=== PATIENT | female | born 1990 | race Caucasian/White ===

== ENCOUNTER 2020-09-04 17:21 | Emergency (ER) | payer OTHER, SELFPAY ==
[2020-09-04] VITALS (21 sets, daily range): BP systolic 113–130; BP diastolic 66–80; PULSE 80–100; RESP 16; TEMP 37.2–37.4; O2SAT 97–100
--- NOTE | ~2020-09-04 | CT_ITS ---
EXAMINATION: CT abdomen pelvis wo con EXAM DATE: 09/04/2020 18:49 INDICATION: Right flank and right lower quadrant pain for 4 days. Nausea and vomiting. TECHNIQUE: Spiral CT of the abdomen and pelvis was performed without contrast. Axial, coronal and sag ittal images were reviewed. The dose-length product (DLP) for this examination was 461.91 mGy-cm. T he exposure was tailored according to patient size (auto mA exposure control), and iterative reconstr uction (ASIR) was used as additional dose reduction technique. Comparison is made to prior examinatio n from 2013. FINDINGS: Patient has a right-sided pelvic kidney. There is mild right perinephric fat stranding with out hydronephrosis. There was a similar appearance on 2013 CT scan, when patient also had some hetero geneous enhancement of the kidney consistent with pyelonephritis. Please correlate with urinalysis. P unctate right nephrolithiasis. Uterus and bladder are unremarkable. The liver, spleen, adrenal glands and pancreas are unremarkable. There are cholecystectomy clips. T here is no retroperitoneal or pelvic lymphadenopathy. There are no findings to suggest appendicitis. The stomach and small bowel are unremarkable. There is expected amount of colonic stool. No free intraperitoneal gas. The heart is normal in size. T here are no pericardial or pleural effusions. The lung bases are unremarkable. There are no osteobl astic or osteolytic lesions identified. IMPRESSION: 1. Right pelvic kidney with mild perinephric inflammation, could be acute pyelonephritis. Correlate with urinalysis. 2. Punctate right nephrolithiasis. Reviewed, dictated and finalized at location A. IMPRESSION: 1. Right pelvic kidney with mild perinephric inflammation, could be acute pyel onephritis. Correlate with urinalysis. 2. Punctate right nephrolithiasis.
[2020-09-04 17:53] LABS: Add Urine Microscopic? YES; Appearance Urine Cloudy (Clear); Bacteria Urine 3+ /hpf; Bilirubin Urine Negative (Negative); Blood Urine 1+ (Negative); Color Urine Amber (Yellow); Glucose Urine UA Negative (Negative); Ketones Urine 1+ mg/dL (Negative); Leukocyte Esterase Ur 1+ LEU/UL (Negative); Mucus Urine Few /lpf; Nitrate Urine Negative (Negative); Protein Urine 2+ mg/dL (Negative); Specific Grav Ur 1.023 (1.001-1.035); Squamous Epithelial Cell Urine Many /hpf (Few); Urobilinogen Urine Negative mg/dL (<2.0); WBC Clumps Urine Present /HPF; WBC Urine 51-75 /hpf
--- NOTE | 2020-09-04 18:09 | ED.GENADULT ---
HPI - General Adult General Chief complaint: Fever Stated complaint: N/V/Fever x 4 days Time Seen by Provider: 09/04/20 18:08 Source: patient Mode of arrival: ambulatory Limitations: no limitations History of Present Illness HPI narrative: Patient is here for evaluation of right lower quadrant pain. The pain started approximately 4 days ago, has worsened over time, she has had nausea and vomiting and now anorexia. She denies any dysuria. She did video conference with her physician and was ordered on Zofran for nausea, that did not help. She has been taking Tylenol or ibuprofen at home for fever, stating her last fever was last night before bed and her T-max has been 103. She is afebrile at this time and her last Tylenol was this a.m. Onset (ago): day(s) Radiation: abdomen and flank (right) Severity: severe Quality: sharp Pain Consistency: constant Relieving factors: rest Exacerbating factors: movement Associated symptoms: fever/chills, loss of appetite and nausea/vomiting Treatments prior to arrival: NSAID Related Data Home Medications Medication Instructions Recorded Confirmed fluoxetine [Prozac] 20 mg PO DAILY 02/20/19 venlafaxine [Effexor] 100 mg PO BID 09/04/20 Allergies Allergy/AdvReac Type Severity Reaction Status Date / Time codeine Allergy Unknown Nausea and Verified 02/20/19 14:44 Vomiting gabapentin Allergy Gastrointestinal Verified 09/04/20 18:03 Upset Review of Systems Review of Systems: All systems reviewed & are unremarkable except as noted in HPI and below PMFSH Past Medical History Medical History Anxiety Depression Hx of gallstones Hx of migraines induced hypertension Seizures Surgical History Surgical History History of cholecystectomy History of tonsillectomy Family History Family History Mother Family history of mental disorder Family history of thyroid disease Father Family history of attention deficit hyperactivity disorder (ADHD) Family history of cardiac disorder Other Diabetes mellitus Hypertension Social History Social History Social History: Currently vapes small dose 6 mg/2 weeks Smoking status: Former smoker Tobacco type: cigarettes Alcohol intake: never Exam Const: General: alert and ill appearing HENMT: Head: normal to inspection Mouth: Yes moist mucous membranes Eyes: Conjunctivae: conjunctivae normal Pupils: Equal, round and reactive pupils present EOM: EOMs intact bilaterally Resp: Effort & Inspection: normal respiratory effort Auscultation: clear to auscultation bilaterally Cardio: Rate: regular rate and tachycardic Rhythm: regular rhythm GI: GI Palp: Yes Soft to palpation and Yes Tenderness to palpation present (GI) (RLQ) Auscultation: Hypoactive bowel sounds present : General: Yes CVA tenderness on the right Skin: General skin exam: normal color Rashes: no rashes Neuro: General: moves all extremities Extrem: General: normal to inspection Course Course Emergency Course: Now rating pain 7/10. Pain is better after morphine. Discussed incidental finding of right pelvic kidney. Recommended to discuss with primary care for possible referral to nephrology as she has had 2 episodes of pyelonephritis in 2 yrs. repeat K+ still low, discussed with Dr. Otto, will treat with 5 days of PO potassium. PMD can recheck level. Vital Signs Vital signs: Vital Signs Temperature 37.4 C 09/04/20 17:26 Pulse Rate 100 09/04/20 17:26 Respiratory Rate 16 09/04/20 17:26 Blood Pressure 130/80 09/04/20 17:26 Pulse Oximetry 100 09/04/20 17:26 Temperature 37.2 C 09/04/20 18:55 Pulse Rate 88 09/04/20 22:01 Respiratory Rate 16 09/04/20 17:26 Blood Pressure 125/77 0
[2020-09-04 18:10] LABS: Basophils Absolute Auto 0.1 K/mm3 (0.0-0.1); Basophils Percent Auto 0.7 % (0.2-1.2); Eosinophils Absolute Auto 0.1 K/mm3 (0-0.3); Hematocrit 36.7 % (37.0-47.0); Hemoglobin 12.8 g/dL (12.0-15.0); Immature Granulocyte Absolute 0.13 K/mm3 (0.00-0.031); Immature Granulocyte Percent A 0.9 % (0-0.5); Lymphocytes Absolute Auto 1.93 K/mm3 (0.9-3.2); Lymphocytes Percent Auto 13.8 % (18.3-44.2); Mean Corpuscular HGB Conc 34.9 g/dl (32-36); Mean Corpuscular Volume 85.9 fl (80-100); Mean Platelet Volume 9.7 fl (7.4-10.4); Monocytes Absolute Auto 1.2 K/mm3 (0.1-0.6); Monocytes Percent Auto 8.3 % (2.6-8.5); Neutrophils Absolute Auto 10.5 K/mm3 (1.3-6.7); Neutrophils Percent Auto 75.3 % (45.5-73.1); Platelet Count Result 368 k/mm3 (150-375); Red Blood Count 4.27 M/mm3 (4.2-5.4); Red Cell Distribution Width 13.3 % (11.5-14.5)
[2020-09-04 18:25] LABS: Alanine Aminotransferase 20 U/L (4-35); Albumin Level 4.4 g/dL (3.5-5.1); Alkaline Phosphatase 65 U/L (38-126); Anion Gap 11 mmol/L (8-16); Aspartate Amino Transferase 41 U/L (14-36); Bilirubin,Total 0.7 mg/dL (0.2-1.3); Blood Urea Nitrogen 12 mg/dL (7-17); Calcium 9.8 mg/dL (8.4-10.2); Carbon Dioxide 29 mmol/L (22-30); Chloride 96 mmol/L (98-107); Estimated CRCL calculation 112 ml/min; Estimated Glomerular Filt Rate > 60; Glucose 98 mg/dL (65-105); Lipase 20 U/L (23-300); Potassium 2.8 mmol/L (3.4-5.0); Sodium 136 mmol/L (137-145)
[2020-09-04] MEDS: SODIUM CHLORIDE 0.9% IV 1,000 ML 999 ML IV CONT (18:57)
--- NOTE | 2020-09-04 19:40 | PC.NURSE ---
potassium drip running at this time. will run ciprofloxacin after conclusion of potassium drip.
[2020-09-04] MEDS: MORPHINE SULFATE (*CRX) 2 MG/ML INJ IV PUSH (20:04)
[2020-09-04 20:27] LABS: Lactic Acid Reflex 0.7 mmol/L (0.7-2.1)
[2020-09-04] MEDS: CIPROFLOXACIN 400 MG/D5W 200ML 200 ML 200 MG IVPB (21:54)
[2020-09-04 23:33] LABS: Potassium 2.5 mmol/L (3.4-5.0)
[2020-09-05 00:04] VITALS: BP 124/80; PULSE 95; RESP 16; O2SAT 99
== END 2020-09-04 23:55 | disposition home or self-care (01) ==
PROVIDERS: Emergency Medicine; Physician Assistant; Emergency Provider Emergency Medicine; PCP Family Medicine
DX: N12 Tubulo-interstitial nephritis, not specified as acute or chronic (principal); F41.9 Anxiety disorder, unspecified; F32.9 Major depressive disorder, single episode, unspecified; F17.290 Nicotine dependence, other tobacco product, uncomplicated; E87.6 Hypokalemia
CPT/HCPCS: 36415; 74176; 80053; 81001; 81025; 83605; 83690; 84132; 85025; 87077; 87086; 87088; 87186; 96361; 96365; 96366; 96367; 96375; 99284; J0131; J0744; J2270; J3480; J7030; J7060

== ENCOUNTER 2021-01-09 16:34 | Outpatient (CLI) | payer OTHER, SELFPAY ==
--- NOTE | ~2021-01-09 | US_ITS ---
EXAMINATION: US thyroid DATE: 01/09/2021 17:06 INDICATION: Nontoxic goiter, unspecified. TECHNIQUE: Multiple ultrasound images of the thyroid were obtained. COMPARISON: Ultrasound 10/02/2018, CT cervical spine 10/01/2018 FINDINGS: The right thyroid lobe measures 8.0 x 4.0 x 3.3 cm. The left thyroid lobe measures 5.3 x 1.5 x 2.1 c m. In the right thyroid lobe, there is a 3.9 cm predominantly solid, isoechoic, [id number] nodu le with ill-defined margin without echogenic foci (TR3) with benign biopsy result on 10/17/18. Partial ly visualized is a solid isoechoic nodule in right thyroid lobe that extends into the mediastinum on the prior CT (TR3) with benign biopsy result on 10/17/18. There are subcentimeter nodules in left thyr oid lobe. IMPRESSION: 1. Stable multinodular goiter, likely not clinically significant. Reviewed, dictated and finalized at location A. [employer]
== END 2021-01-09 16:35 | disposition home or self-care (01) ==
LOC: ANHIMG 16:36
PROVIDERS: PCP Family Medicine; Visit Provider Family Medicine
DX: E04.2 Nontoxic multinodular goiter (principal)
CPT/HCPCS: 76536

== ENCOUNTER 2021-02-24 01:23 | Day surgery (SDC) | payer OTHER, SELFPAY ==
--- NOTE | 2021-02-20 14:56 | PC.NURSE ---
Report to the Outpatient Waiting Room, entrance under the green pavilion located off [facility], at time 0730 on date _02/24/21 . OR Time: 929 . - You and your visitor will be asked a series of questions to screen for COVID 19 for your protection. - A mask is required within the hospital. - Only one visitor is allowed at this time. Patient visitors will be guided where to wait when not with patient. Preoperative COVID Testing Requirements: No COVID Test needed if: (proof is required; if not received patient will have Rapid Test prior to entry) - Patient has received COVID Vaccine at least 14 days prior to procedure date or - Patient has positive COVID test result within last 90 days of surgery date. COVID Test needed if above criteria is not met If not COVID vaccinated a COVID test must be conducted within 72 hours of surgery and patient is asked to isolate self from time of testing until procedure. You will go to the [employer] [facility] for your COVID testing. The [employer] [facility] site is located at the corner of [address] from [facility]. You will only be called if COVID results are positive and your surgeon may reschedule your elective surgery date. Patients may have clear liquids (water, carbonated beverages, clear teas, apple juice) until 3 hours prior to surgery with a maximum of 20 ounces. - No food from midnight until time of surgery - Infants may have breast milk until 4 hours before surgery, infant formula 6 hours prior to surgery. - Children will be allowed to drink immediately following surgery. If applicable, please bring a bottle or sippy cup to assist with drinking. Juice, water, soda, and popsicles are readily available. For infants on formula, please bring formula the day of surgery. Pacifiers are allowed. Take the following medications with a SIP of water the morning of surgery: __FLUOXETINE,LEVETIRACETAM,VENLAFAXINE Medications to discontinue per physician NONE Date to take last dose Please no make-up, nail surinamese, hairspray, perfume, deodorant, or body powder the day of surgery. No jewelry (including any body piercings) or valuables the day of surgery, leave them at home. Please take a shower or bath the night before, or the morning of, surgery with an antibacterial soap. Wear comfortable, loose fitting clothing. Children are encouraged to wear pajamas. - Jewelry must be removed prior to entering the operating room. Rings and piercings that are not removed may be cut off. - The hospital will not accept responsibility for valuables. - Please leave all valuables, including medications, at home the day of surgery. If you are going home after surgery, a licensed patient transportation driver must drive you home. - NO public transportation without another adult. - We recommend that an adult stay with you for 24 hours following discharge. - We also recommend that you do not drive, make important decision, drink alcoholic beverages, or take any drugs that were not prescribed by your health care provider for at least 24 hours after your discharge time. For Pediatric surgeries, we recommend two adults accompany the child home (only one inside the building at this time). Follow any additional instructions given to you from your surgeon. Telephone instructions given to __PATIENT and asked if any additional questions and then verbalized understanding. Patient advised to call surgeon office or pre surgery nurse liaison [phone] if any additional questions.
[2021-02-20 14:58] VITALS: BMI 26.5
--- NOTE | 2021-02-23 10:30 | PM.IMHP ---
H&P: HPI History of Present Illness Date/Time: 02/23/21 10:30 Chief Complaint: Choking coughing gagging thyroid goiter thyroid nodules Narrative: patient presents for planned surgical procedure. No change in symptoms no change in history. Review of Systems Constitutional: Constitutional: Denies fatigue, Denies fever(s) and Denies lethargy Eyes: Eyes: Denies blurry vision and Denies change in vision ENT: Reports as per HPI Cardiovascular: Cardiovascular: Denies chest pain Respiratory: Respiratory: Denies cough Endocrine: Endocrine: Denies fatigue Hematologic/Lymphatic: Hematologic/Lymphatic: Denies easy bleeding, Denies easy bruising and Denies lymphadenopathy Allergic/Immunologic: Allergic/Immunologic: Denies seasonal rhinorrhea PMFSH Past Medical History Medical History Anxiety Chronic headaches Depression Hx of gallstones Hx of migraines induced hypertension Seizures Thyroid disorder Surgical History Surgical History History of cholecystectomy History of tonsillectomy Family History Family History Mother Depression Anxiety Thyroid disorder Father Hypertension Sibling Anxiety Depression Grandparent Breast cancer Grandparent Heart disease Other Diabetes mellitus Social History Social History Social History: Currently vapes small dose 6 mg/2 weeks Smoking packs per day: 1 Smoking cigarettes per day: 20.0 Years smoked: 4 Smoking pack-years: 4.00 Smoking status: Former smoker Tobacco type: cigarettes and e-cigarettes/vaping Smoking end date: 03/07/11 Additional smoking assessment comments: STOPPED VAPING AUGUST 2020 Alcohol intake: never Substance use: current Substance use type: marijuana Last use: JUNE 2020 Living arrangements: with family Gender identity (if verbalized by the patient): Female Sexual Orientation (if Verbalized by the Patient): Straight or Heterosexual Spiritual care concerns: No Meds Home Medications and Allergies Home Medications Medication Instructions Recorded Confirmed Type fluoxetine 60 mg tablet 60 mg PO DAILY #30 tablet 12/30/20 02/20/21 Rx venlafaxine 50 mg tablet 50 mg PO DAILY #30 tablet 12/30/20 02/20/21 Rx levetiracetam 1,000 mg tablet 1,000 mg PO Q12H #60 tablet 01/16/21 02/20/21 Rx Allergies Allergy/AdvReac Type Severity Reaction Status Date / Time codeine Allergy Unknown Nausea and Verified 02/20/21 14:42 Vomiting gabapentin Allergy Gastrointestinal Verified 02/20/21 14:42 Upset Exam Const: General: cooperative, healthy appearing, comfortable, well developed and alert HENMT: Head: normal to inspection, normocephalic and atraumatic Ears: hearing grossly normal bilaterally, external ears normal, TM's normal bilaterally and EAC's normal General nose exam: Normal external nose present, Normal nares present, No nasal polyps present, Normal nasal mucous membranes and turbinates present and Normal septum present Face and sinus: normal facial exam Mouth: Yes Normal oral and palatal mucosa present, Yes lip normal, Yes tongue normal, Yes oropharynx normal and Yes moist mucous membranes Teeth and gingiva: dentition normal and gingiva normal Throat: posterior oropharynx normal, tonsils normal and uvula midline Eyes: General: appearance normal, both eyes and all related structures Periorbital: periorbital findings normal Eyelids: eyelids normal Conjunctivae: conjunctivae normal Sclera: sclerae normal Neck: Neck: not normal to visual inspection, full ROM and no lymphadenopathy Thyroid: abnormal thyroid, asymmetrical, diffusely enlarged and other ( Bilateral goiter right bigger than left) Lymphatic: no lymphadenopathy noted Resp: Effort & Inspection: no
[2021-02-24] VITALS (12 sets, daily range): BP systolic 109–132; BP diastolic 64–87; PULSE 84–132; RESP 12–20; TEMP 36.6; O2SAT 94–100
--- NOTE | 2021-02-24 07:08 | WPDHPUPDATE1 ---
History and Physical Update Update Date/Time: 02/24/21 07:08 History and Physical has been reviewed, including an updated exam of the patient. There are NO changes in the patient's condition. Risks, benefits, and alternatives have been discussed and questions answered. Patient agrees to proceed with procedure.
--- NOTE | 2021-02-24 08:05 | WPDANESEPPF ---
Anes - Initial Pre Proc Eval Procedure: Operation Date: 02/24/21 10:00 Proposed Procedures p Right Thyroidectomy with Isthmusectomy - True Woo MD Date/Time: 02/24/21 08:05 Surgeon: True Woo MD Pre Op Diagnosis: thyroid nodules Patient Data Age: 30 Gender: F Height: 1.6 m Weight: 68.05 kg Allergies Allergy/AdvReac Type Severity Reaction Status Date / Time codeine Allergy Unknown Nausea and Verified 02/24/21 08:21 Vomiting gabapentin Allergy Gastrointestinal Verified 02/24/21 08:21 Upset Home Medications Medication Instructions Recorded Confirmed Type fluoxetine 60 mg tablet 60 mg PO DAILY #30 tablet 12/30/20 02/24/21 Rx venlafaxine 50 mg tablet 50 mg PO DAILY #30 tablet 12/30/20 02/24/21 Rx levetiracetam 1,000 mg tablet 1,000 mg PO Q12H #60 tablet 01/16/21 02/24/21 Rx Other studies: EXAMINATION: US thyroid DATE: 01/09/2021 17:06 INDICATION: Nontoxic goiter, unspecified. TECHNIQUE: Multiple ultrasound images of the thyroid were obtained. COMPARISON: Ultrasound 10/02/2018, CT cervical spine 10/01/2018 FINDINGS: The right thyroid lobe measures 8.0 x 4.0 x 3.3 cm. The left thyroid lobe measures 5.3 x 1.5 x 2.1 cm. In the right thyroid lobe, there is a 3.9 cm predominantly solid, isoechoic, [id number]-[id number] nodule with ill-defined margin without echogenic foci (TR3) with benign biopsy result on 10/17/18. Partially visualized is a solid isoechoic nodule in right thyroid lobe that extends into the mediastinum on the prior CT (TR3) with benign biopsy result on 10/17/18. There are subcentimeter nodules in left thyroid lobe. Patient hx anesthesia problems: none Family hx anesthesia problems: none Results Review: All pre-operative results and documents have been reviewed as part of the pre-operative evaluation. [facility] Past Medical History Medical History Anxiety Chronic headaches Depression Hx of gallstones Hx of migraines induced hypertension Seizures Thyroid disorder Surgical History Surgical History History of cholecystectomy History of tonsillectomy Family History Family History Mother Depression Anxiety Thyroid disorder Father Hypertension Sibling Anxiety Depression Grandparent Breast cancer Grandparent Heart disease Other Diabetes mellitus Social History Social History Social History: Currently vapes small dose 6 mg/2 weeks Smoking packs per day: 1 Smoking cigarettes per day: 20.0 Years smoked: 4 Smoking pack-years: 4.00 Smoking status: Former smoker Tobacco type: cigarettes and e-cigarettes/vaping Smoking end date: 03/07/11 Additional smoking assessment comments: STOPPED VAPING AUGUST 2020 Alcohol intake: never Substance use: current Substance use type: marijuana Last use: JUNE 2020 Living arrangements: with family Gender identity (if verbalized by the patient): Female Sexual Orientation (if Verbalized by the Patient): Straight or Heterosexual Spiritual care concerns: No Anes - Eval Final PreProcedure Day of Procedure 02/24/21 08:05 Patient weight: obese Heart: regular rate and rhythm Lungs: clear to auscultation and normal air movement Airway: Mallampati scale class II Neurological: alert and oriented Last oral intake: >/= 8 hours ASA classification: III Emergent: no Anesthetic plan: proceed Anesthesia type and monitoring: general ETT Results Review: All pre-operative results and documents have been reviewed as part of the pre-operative evaluation. Informed Consent: The patient's anesthetic plan and its attendant risks and benefits were discussed with the patient/family/POA. Questions were solicited and answers provided to the satisfaction of the patient/family/POA.
[2021-02-24] MEDS: ACETAMINOPHEN 500 MG TABLET 1000 MG PO (08:37)
[2021-02-24] MEDS: LACTATED RINGERS 1,000 ML 30 ML IV CONT ×2 (08:48→14:52)
[2021-02-24] MEDS: ceFAZolin 2 GM/D5W 50 ML 2 GM/50 ML BAG IVPB (09:54)
[2021-02-24] MEDS: LIDO 1%/EPINEPHRINE/PF 1:200,000 30 ML VIAL 10 ML XX (10:06)
--- NOTE | 2021-02-24 11:22 | SUR.OPER ---
Frozen Section sent with Maggie and received in pathology by Dagoberto
[2021-02-24] MEDS: ceFAZolin SODIUM 1 GM VIAL IV PUSH (13:54)
[2021-02-24] MEDS: fentaNYL CITRATE INJ (*CRX) 100 MCG/2 ML VIAL 25 MCG IV PUSH ×8 (15:08→16:38)
--- NOTE | 2021-02-24 16:11 | W.PM.PROC2 ---
Procedure Note - Detailed Date of Procedure 02/24/21 Pre-op Diagnosis thyroid nodules, substernal goiter, choking coughing gagging Post-op Diagnosis same Procedure Performed Right-sided thyroid lobectomy Surgeon True Woo MD Anesthesia general Indications See above Findings Very large right-sided thyroid lobe removed unable to remove the substernal component right vocal cord moved following procedure inferior parathyroid preserved Description of Procedure Patient correctly identified consent verified. Patient brought to operating room. Time-out performed. General anesthesia induced Nims monitoring endotracheal tube secured the airway. Recurrent laryngeal nerve monitoring initiated and tested. Patient prepped and draped for the aforementioned procedure. Second time-out performed. 8 cm incision drawn approximately 2 fingerbreadths above the sternal notch in a curvilinear incision. 3 cc 1% lidocaine with 1 100,000 parts epinephrine injected deep to the incision 15 blade utilized to make skin incision Bovie electrocautery utilized to dissect down to platysma ligature utilized to create platysmal incision sub platysmal flaps elevated to the thyroid notch and sternal notch inferiorly. Dura hooks placed. Midline raphe identified and dissected using Bovie electrocautery and ligature from the thyroid notch down to the sternal notch. The sternal thyroid excuse me sternohyoid and sternothyroid dissected laterally laterally in the entire thyroid goiter was visible in the neck. It was very large. Top 1 cm of the thyro sternothyroid incised the avascular triangle space identified superior vessels cauterized using ligature freeing the superior portion blunt dissection was carried around laterally the middle thyroid vein was then ligated using the ligature. The inferior portion was identified and appeared to be without substernal component the inferior parathyroid was then identified and freed it appeared vascular and viable following release inferiorly. At this point a large substernal component was identified using blunt dissection largely manual with my fingers I attempted for several hours to get the substernal component freed I was unable. At this point the decision was made to remove the lobe leaving a small portion over Naren's ligament/recurrent laryngeal nerve as this portion was also the portion of the right lobe which had the substernal component attached to it. This released well. The wound was then copiously irrigated in any obvious bleeders coagulated using Bovie excuse me using bipolar electrocautery at a setting of 10. The recurrent laryngeal nerve was not identified during the procedure but tissue was left over the cricoid thyroid joint. A 10 Italian drain was placed after Anesthesia Valsalva to ensure no obvious bleeders were left. Of note the sternothyroid excuse me sternohyoid was split this was reapproximated. The superior strap muscles were approximated using 3-0 interrupted Vicryl sutures. The deep layer and platysma was closed using 3-0 interrupted Vicryl sutures the dermis and deep layers were closed using 4-0 interrupted Vicryl sutures. The skin was well approximated and glued closed. This marked end of the procedure. There were no obvious complications. I performed all dictated portions of the procedure. Total blood loss approximately 500 cc. Of note the goiter. Odd intraoperatively almost having lymphoma appearance several specimens were sent to frozen pathology none identified as lymphoma all identified as normal thyroid tissue. Estimated Blood Loss -500.0 Drains Yes Packing No Pathology yes Complications No immediate complications Condition stable Disposition PACU
[2021-02-24] MEDS: HYDROcodone/acetaminophen (*CRX) 5-325 MG TABLET 1 TAB PO (17:17)
== END 2021-02-24 18:01 | disposition home or self-care (01) ==
PROVIDERS: PCP Family Medicine; Visit Provider Otolaryngology
PROC: (CPT 60220; principal; 2021-02-24 10:00)
DX: E04.2 Nontoxic multinodular goiter (principal); G40.909 Epilepsy, unspecified, not intractable, without status epilepticus; F41.8 Other specified anxiety disorders; F17.290 Nicotine dependence, other tobacco product, uncomplicated; F12.90 Cannabis use, unspecified, uncomplicated; E66.9 Obesity, unspecified; Z68.30 Body mass index [BMI] 30.0-30.9, adult
CPT/HCPCS: 60220; 88304; 88305; 88307; 88331; 88333; A9270; J0330; J0690; J1100; J1170; J2250; J2405; J2704; J3010; J7120

== ENCOUNTER 2021-11-19 13:33 | Outpatient (CLI) | payer OTHER, SELFPAY ==
[2021-11-19 19:52] LABS: LDL Cholesterol Direct 89 mg/dL
[2021-11-19 20:29] LABS: Thyroid Stimulating Hormone Reflex 0.852 uIU/mL (0.465-4.68)
[2021-11-19 21:32] LABS: Alanine Aminotransferase 27 U/L (6-35); Albumin Level 4.1 g/dL (3.5-5.1); Alkaline Phosphatase 64 U/L (38-126); Anion Gap 12 mmol/L (8-16); Aspartate Amino Transferase 46 U/L (14-36); Bilirubin,Total 0.9 mg/dL (0.2-1.3); Blood Urea Nitrogen 11 mg/dL (7-17); Carbon Dioxide 32 mmol/L (22-30); Chloride 96 mmol/L (98-107); Cholesterol 150 mg/dL (0-200); Estimated Glomerular Filt Rate > 60; Glucose 94 mg/dL (65-110); HDL Direct 32 mg/dL; Potassium 2.7 mmol/L (3.4-5.0); Sodium 140 mmol/L (137-145); Triglycerides 78 mg/dL (<150)
== END 2021-11-19 13:34 | disposition home or self-care (01) ==
LOC: ANHGOSHLAB 13:35
PROVIDERS: PCP Family Medicine; Visit Provider Family Medicine
DX: E04.1 Nontoxic single thyroid nodule (principal); Z13.220 Encounter for screening for lipoid disorders; Z13.228 Encounter for screening for other metabolic disorders
CPT/HCPCS: 36415; 80053; 80061; 84443

== ENCOUNTER 2022-10-04 08:14 | Emergency (ER) | payer OTHER, SELFPAY ==
--- NOTE | ~2022-10-04 | XR_ITS ---
EXAMINATION: XR ankle LT min 3V, XR foot LT min 3V DATE: 10/04/2022 08:52 INDICATION: Left foot pain, swelling and decreased range of motion post fall 2 days prior TECHNIQUE: 1. Anteroposterior, mortise, additional oblique and lateral view of the left ankle were obtained. 2. Dorsoplantar, two oblique and lateral views of the left foot were obtained. COMPARISON: None. FINDINGS: Alignment of the left foot and ankle is normal. No fracture or osteochondral lesion. Joint spaces are well maintained. No ankle joint effusion. The soft tissues are unremarkable. IMPRESSION: 1. Negative left foot and ankle radiographs. Reviewed, dictated and finalized at location B. IMPRESSION: 1. Negative left foot and ankle radiographs.
--- NOTE | ~2022-10-04 | XR_ITS ---
EXAMINATION: XR hand LT min 3V DATE: 10/04/2022 09:07 INDICATION: Pain at the left index finger post fall TECHNIQUE: Posteroanterior, oblique and lateral views of the left hand were obtained. COMPARISON: None. FINDINGS: Alignment is normal. No fracture. Joint spaces are normal. Diffuse mild soft tissue swelling througho ut the left second digit. IMPRESSION: 1. No osseous abnormality. Reviewed, dictated and finalized at location B. IMPRESSION: 1. No osseous abnormality.
[2022-10-04 08:31] VITALS: BP 114/54; PULSE 100; RESP 16; TEMP 37.1; O2SAT 100
--- NOTE | 2022-10-04 08:37 | ED.LOWEXIN ---
HPI - Extremity Injury (Lower) General Chief Complaint: Extremity Injury, Lower Stated Complaint: FALL, L ANKLE PAIN Time Seen by Provider: 10/04/22 08:34 History of Present Illness HPI Narrative: Pt was running 2 days ago and fell forward landing on knees. Pt denies LOC. Pt has abrasion to knees but mainly has pain to top o f left foot and ankle. Unsure of last tetanus. Related Data Allergies Allergy/AdvReac Type Severity Reaction Status Date / Time codeine Allergy Unknown Nausea and Verified 10/04/22 08:25 Vomiting gabapentin Allergy Gastrointestinal Verified 10/04/22 08:25 Upset Review of Systems Review of Systems: All systems reviewed & are unremarkable except as noted in HPI and below PMFSH Past Medical History Medical History Anxiety Chronic headaches Depression Hx of gallstones Hx of migraines induced hypertension Seizures Thyroid disorder Surgical History Surgical History H/O partial thyroidectomy History of cholecystectomy History of tonsillectomy Family History Family History Mother Depression Anxiety Thyroid disorder Father Hypertension Sibling Anxiety Depression Grandparent Breast cancer Grandparent Heart disease Other Diabetes mellitus Social History Social History Social History: Currently vapes small dose 6 mg/2 weeks Smoking packs per day: 1 Smoking cigarettes per day: 20.0 Years smoked: 4 Smoking pack-years: 4.00 Smoking status: Former smoker Tobacco type: cigarettes and e-cigarettes/vaping Smoking end date: 03/07/11 Additional smoking assessment comments: STOPPED VAPING AUGUST 2020 Alcohol intake: never Substance use: current Substance use type: marijuana Last use: JUNE 2020 Living arrangements: with family Gender identity (if verbalized by the patient): Female Sexual Orientation (if Verbalized by the Patient): Straight or Heterosexual Spiritual care concerns: No Exam Const: General: healthy appearing Nutritional Appearance: well nourished Orientation/consciousness: patient oriented x3 Limitations: no limitations Resp: Effort & Inspection: normal respiratory effort Auscultation: clear to auscultation bilaterally Cardio: Rate: regular rate Rhythm: regular rhythm GI: GI Palp: Yes Soft to palpation Auscultation: normal bowel sounds Skin: Other: abrasion to knee and scabs to top of foot Neuro: General: patient oriented x3 and moves all extremities Speech: normal speech Extrem: Other: tender top of left foot with bruising Psych: Mental Status: mental status grossly normal Affect: normal affect Attitude: cooperative Course Vital Signs Vital signs: Vital Signs Temperature 98.8 F 10/04/22 08:31 Pulse Rate 100 10/04/22 08:31 Respiratory Rate 16 10/04/22 08:31 Blood Pressure 114/54 L 10/04/22 08:31 Pulse Oximetry 100 10/04/22 08:31 Oxygen Delivery Room Air 10/04/22 08:31 Temperature 98.8 F 10/04/22 08:31 Pulse Rate 100 10/04/22 08:31 Respiratory Rate 16 10/04/22 08:31 Blood Pressure 114/54 L 10/04/22 08:31 Pulse Oximetry 100 10/04/22 08:31 Oxygen Delivery Room Air 10/04/22 08:31 MDM - Extremity Injury (Lower) MDM Narrative Medical decision making narrative: x rays neg for fx. can send home with work note. Pt has crutches at home advised to try to not bear weight for a few days. Discharge Plan Discharge Clinical Impression: Muscle strain of left foot Patient Disposition: Home, Self-Care Condition: Stable Instructions: Antibiotic Form, Foot Sprain (ED) Prescriptions: New naproxen [Naprosyn] 500 mg tablet 500 mg PO BID Qty: 20 0RF No Action fluoxetine 60 mg tablet 60 mg PO DAILY Qty: 30 5
[2022-10-04] MEDS: KETOROLAC 30 MG/ML VIAL (*BKC) IM (08:55)
[2022-10-04] MEDS: TETANUS,DIPHTHERIA,AC PERTUSSIS ADULT (0.5 ML) BOOSTRIX IM (08:55)
== END 2022-10-04 10:05 | disposition home or self-care (01) ==
PROVIDERS: Emergency Provider Emergency Medicine; PCP Family Medicine
DX: S96.912A Strain of unspecified muscle and tendon at ankle and foot level, left foot, initial encounter (principal); S80.212A Abrasion, left knee, initial encounter; S80.211A Abrasion, right knee, initial encounter; Z23 Encounter for immunization; E07.9 Disorder of thyroid, unspecified; E89.0 Postprocedural hypothyroidism; Z87.891 Personal history of nicotine dependence; Z90.49 Acquired absence of other specified parts of digestive tract; W01.0XXA Fall on same level from slipping, tripping and stumbling without subsequent striking against object, initial encounter; Y93.02 Activity, running
CPT/HCPCS: 73130; 73610; 73630; 90471; 90715; 96372; 99284; J1885

== ENCOUNTER 2023-03-25 11:13 | Observation (INO) | payer OTHER, SELFPAY ==
--- NOTE | ~2023-03-25 | CT_ITS ---
EXAMINATION: CT abdomen pelvis w con DATE: 03/25/2023 12:56 INDICATION: Back pain, nausea, vomiting and diarrhea. TECHNIQUE: Computed tomography (CT) of the abdomen and pelvis was performed with 100 CC Omnipaque 350 intravenous contrast. Automated exposure control and iterative reconstruction technique were employe d. Exam dose: 197.31 mGy-cm total exam DLP. COMPARISON: 09/14/2019 CT abdomen pelvis FINDINGS: There Bases are clear. Normal heart size. No pericardial or pleural effusion. Diffuse hepatic steatosis. Status post cholecystectomy. No abnormal bile duct or pancreatic duct dilatation. No hepatic, splenic , pancreatic, and adrenal or renal space-occupying mass lesion is detected. Right pelvic kidney, incompletely rotated, with the duplicated renal pelves directed anteriorly. Appr oximately 1.5 mm nonobstructing right renal calculus. No renal mass lesion or ureteral calculus or hy droureteronephrosis is evident. The uterus, adnexal areas and urinary bladder appear unremarkable. Normal caliber of the abdominal aorta. No intraperitoneal or retroperitoneal or pelvic mass lesion or adenopathy or ascites. There are fluid levels in small bowel and large bowel consistent with the clinical presentation of di arrhea. No bowel obstruction, bowel wall thickening, pneumatosis or intraperitoneal free air is detec david. No suspicious osteolytic or osteoblastic lesions. Intraluminal thrombus is suggested in the left femoral vein. Consider duplex venous examination IMPRESSION: Suspected deep venous thrombosis of left femoral vein; consider duplex venous examinatio n of left lower extremity Hepatic steatosis Status post cholecystectomy Duplicated right pelvic kidney 1.5 mm nonobstructing right renal calculus Reviewed, dictated and finalized at Location A. Reviewed, dictated and finalized at location B. [employer] IMPRESSION: Suspected deep venous thrombosis of left femoral vein; consider du plex venous examination of left lower extremity Hepatic steatosis Status post cholecystectomy Duplicated right pelvic kidney 1.5 mm nonobstructing right renal calculus
--- NOTE | ~2023-03-25 | US_ITS ---
EXAMINATION: US venous doppler [facility] DATE: 03/25/2023 14:45 INDICATION: Suspicion for left femoral vein thrombosis based on prior CT. TECHNIQUE: Grayscale ultrasound images without and with compression and Doppler ultrasound images of the left lower extremity veins were obtained. COMPARISON: None. FINDINGS: The visualized portions of left common femoral vein, profunda (deep) femoral vein, femoral vein, popl iteal vein, peroneal veins, posterior tibial veins, gastrocnemius vein and greater saphenous vein out flow are patent. IMPRESSION: 1. No deep venous thrombosis in the left lower limb. Reviewed, dictated and finalized at location A. ADMINISTRATOR
[2023-03-25 11:23] VITALS: BP 123/70; PULSE 48; RESP 18; TEMP 37.2; O2SAT 100
[2023-03-25 11:50] LABS: Basophils Absolute Auto 0.1 K/mm3 (0.0-0.1); Basophils Percent Auto 0.8 % (0.2-1.2); Eosinophils Percent Auto 0.1 % (0-4.4); Hematocrit 41.3 % (37.0-47.0); Hemoglobin 13.9 g/dL (12.0-15.0); Immature Granulocyte Absolute 0.04 K/mm3 (0.00-0.031); Immature Granulocyte Percent A 0.3 % (0-0.5); Lymphocytes Absolute Auto 1.14 K/mm3 (0.9-3.2); Lymphocytes Percent Auto 9.3 % (18.3-44.2); Mean Corpuscular HGB Conc 33.7 g/dl (32-36); Mean Corpuscular Hemoglobin 29.8 pg (26-34); Mean Corpuscular Volume 88.4 fl (80-100); Mean Platelet Volume 9.5 fl (7.4-10.4); Monocytes Absolute Auto 0.6 K/mm3 (0.1-0.6); Monocytes Percent Auto 4.7 % (2.6-8.5); Neutrophils Absolute Auto 10.4 K/mm3 (1.3-6.7); Neutrophils Percent Auto 84.8 % (45.5-73.1); Platelet Count Result 592 k/mm3 (150-375); Red Blood Count 4.67 M/mm3 (4.2-5.4); Red Cell Distribution Width 14.5 % (11.5-14.5); White Blood Count 12.2 K/mm3 (4.5-10.0)
[2023-03-25 11:58] LABS: Alanine Aminotransferase 33 U/L (6-35); Albumin Level 4.6 g/dL (3.5-5.1); Alkaline Phosphatase 45 U/L (38-126); Anion Gap 15 mmol/L (8-16); Aspartate Amino Transferase 34 U/L (14-36); Bilirubin,Total 1.4 mg/dL (0.2-1.3); Blood Urea Nitrogen 12 mg/dL (7-17); Calcium 10.1 mg/dL (8.4-10.2); Carbon Dioxide 23 mmol/L (22-30); Chloride 102 mmol/L (98-107); Estimated CRCL calculation 94 ml/min; Estimated Glomerular Filt Rate > 60; Glucose 153 mg/dL (65-110); Potassium 3.4 mmol/L (3.4-5.0); Sodium 140 mmol/L (137-145)
--- NOTE | 2023-03-25 12:10 | ED.GENADULT ---
HPI - General Adult General Chief complaint: Back Pain/Injury <Osbaldo Raymond PA-C - Last Filed: 03/25/23 19:34> Stated complaint: i think i have a kidney infection /back pain <Osbaldo Raymond PA-C - Last Filed: 03/25/23 19:34> Time Seen by Provider: 03/25/23 11:59 <Osbaldo Raymond PA-C - Last Filed: 03/25/23 19:34> Source: patient <AISHWARYA Arechiga Last Filed: 03/25/23 19:34> Mode of arrival: ambulatory <AISHWARYA Arechiga Last Filed: 03/25/23 19:34> Limitations: no limitations <Osbaldo Raymond PA-C - Last Filed: 03/25/23 19:34> History of Present Illness HPI narrative: This is a 32-year-old female with PMH of seizure disorder who presents to the ED with chief complaint of bilateral flank pain beginning around 6:00 a.m. this morning. Reports that she started to feel the back pain feeling shaky. Reports that she also feels nauseous has had couple of episodes of vomiting and a couple of episodes of diarrhea. States she is feeling just fine yesterday. states she has had a kidney infection past and is unsure if this is the same. Denies fevers, abdominal pain, GI bleeding, urinary symptoms. <Osbaldo Raymond PA-C - Last Filed: 03/25/23 19:34> Related Data Allergies/adverse reactions: Allergies Allergy/AdvReac Type Severity Reaction Status Date / Time codeine Allergy Unknown Nausea and Verified 03/25/23 11:14 Vomiting gabapentin Allergy Gastrointestinal Verified 03/25/23 11:14 Upset <Osbaldo Raymond PA-C - Last Filed: 03/25/23 19:34> Review of Systems Review of Systems: All systems as dictated in HPI <Osbaldo Raymond PA-C - Last Filed: 03/25/23 19:34> PMFSH Past Medical History Medical History: Medical History Anxiety Chronic headaches Depression Hx of gallstones Hx of migraines induced hypertension Seizures Thyroid disorder <Osbaldo Raymond PA-C - Last Filed: 03/25/23 19:34> Surgical History Surgical History: Surgical History H/O partial thyroidectomy History of cholecystectomy History of tonsillectomy <Osbaldo Raymond PA-C - Last Filed: 03/25/23 19:34> Family History Family History: Family History Mother Depression Anxiety Thyroid disorder Father Hypertension Sibling Anxiety Depression Grandparent Breast cancer Grandparent Heart disease Other Diabetes mellitus <AISHWARYA Arechiga Last Filed: 03/25/23 19:34> Social History Social History: Social History Social History: Currently vapes small dose 6 mg/2 weeks Smoking packs per day: 1 Smoking cigarettes per day: 20.0 Years smoked: 4 Smoking pack-years: 4.00 Smoking status: Former smoker Additional smoking assessment comments: STOPPED VAPING AUGUST 2020 Alcohol intake: never Substance use: current Substance use type: marijuana Do You Feel Safe in your Home?: Yes Lack of Transportation: No Lack of Food: Never True Current Housing: I Have Housing Concerned About Future Housing: No Difficulty Paying Gas/Electric Bills: No Difficulty Paying for Meds: No Currently Unemployed: No Education: Decline to Answer Difficulty w/ Childcare or Family Care: No Living arrangements: with family Gender identity (if verbalized by the patient): Female Sexual Orientation (if Verbalized by the Patient): Straight or Heterosexual Spiritual care concerns: No <Osbaldo Raymond PA-C - Last Filed: 03/25/23 19:34> Exam Narrative: GENERAL: lying in bed crying during exam. HEAD: Normocephalic, atraumatic. EYES: PERRLA and EOMI. ENT: Nares clear, no rhinorrhea or epistaxis. Mucous membranes moist. Oropharynx without tonsillar hypertrophy exudate or other lesions. NECK: Supple. No adenopathy or mas
[2023-03-25] MEDS: MORPHINE SULFATE (*CRX) 4 MG/ML INJ IV PUSH ×2 (12:31→15:22)
[2023-03-25] MEDS: levETIRAcetam 1000MG/NACL100ML 1,000 MG/100 ML BAG 400 MG IVPB (12:31)
[2023-03-25] MEDS: ONDANSETRON INJ 4 MG/2 ML VIAL IV PUSH (12:31)
[2023-03-25 12:55] LABS: Appearance Urine Cloudy (Clear); Bacteria Urine 4+ /hpf; Bilirubin Urine 1+ (Negative); Blood Urine Negative (Negative); Color Urine Dark Yellow (Yellow); Glucose Urine UA Negative (Negative); Ketones Urine Trace mg/dL (Negative); Leukocyte Esterase Ur 1+ LEU/UL (Negative); Mucus Urine Present /lpf; Need Manual Microscopic Reviewed; Nitrate Urine Positive (Negative); Protein Urine 2+ mg/dL (Negative); Specific Grav Ur 1.024 (1.001-1.035); Squamous Epithelial Cell Urine Few /hpf (Few); pH Urine >=9.0 (5.0-9.0)
[2023-03-25 12:58] LABS: Add Urine Microscopic? YES
[2023-03-25] MEDS: SODIUM CHLORIDE 0.9% IV 1,000 ML 999 ML IV CONT (13:09)
[2023-03-25] MEDS: KETOROLAC 15 MG/ML VIAL (*BKC) IV PUSH (13:28)
[2023-03-25 15:45] VITALS: BP 97/66; PULSE 62; RESP 18; TEMP 36.6; O2SAT 98
[2023-03-25] MEDS: SODIUM CHLORIDE 0.9% IV 1,000 ML 125 ML IV CONT (17:17)
[2023-03-25 18:03] VITALS: BP 116/58; PULSE 58; RESP 18; TEMP 36.5; O2SAT 100
[2023-03-25] MEDS: HYDROmorphone HCL INJ (*CRX) 1 MG/ML SYR 0.5 MG IV PUSH ×2 (18:11→21:55)
--- NOTE | 2023-03-25 18:25 | ADMGEN ---
This patient, Tawana Jha, was admitted to Virtual Bed 3rd Floor-1 @ 1825. Patient/family oriented to hospital policies and general routines including ID bracelet, bed and alarms, visiting hours, pain management, procedures, bathroom and other care routines, personal items, smoking policy, room service/diet, and visiting hours. Information on how to activate the Rapid Response Team has been discussed. Patient/Family are encouraged to report perceived risks to care and to ask questions if they do not understand what they are told or what they should do.
[2023-03-25 18:47] VITALS: BMI 19.8
[2023-03-25 20:00] VITALS: O2SAT 100
[2023-03-25 21:27] VITALS: BP 123/82; PULSE 54; RESP 12; TEMP 36.9; O2SAT 100
--- NOTE | 2023-03-25 22:47 | PM.IMHP ---
H&P: HPI History of Present Illness Date/Time: 03/25/23 22:47 Chief Complaint: Flank Pain Narrative: 32 y/o F presents here with bilateral flank pain, nausea, vomiting, and diarrhea with past medical history of anxiety/depression, migraines, gallstones s/p cholecystectomy, thyroid dysfunction w/partial thyroidectomy, and seizures. Patient presented here with bilateral flank pain, nausea, vomiting, and chills that began this morning around 6:00 a.m. symptoms preceded by diarrhea for the past 3 days. Patient did have COVID approximately 2 weeks ago, otherwise no other recent infections. Does report 60 lb of weight loss in the past 4-5 months. Believes this is secondary to her thyroid enlargement. She has a history of a partial thyroidectomy, they were unable to do a complete thyroidectomy due to the size of the left side of her thyroid and are currently recommending a sternotomy approach? They recommended she be seen at [facility] for this procedure but patient has been unable to schedule with them due to socioeconomic factors. Due to thyroid enlargement she has been experiencing some difficulty with swallowing and sore throat. Believe she became very dehydrated over the past few days due to the ongoing dysphagia and new diarrhea. Was unable to provide urine sample in the ED until she received fluids and had to have straight cath which did not yield much urine according to the patient. Patient continues to feel fatigued and generally weak. Bilateral flanks are tender to palpation. ED workup revealed mild leukocytosis with white count of 12.2, elevated platelet count at 592, creatinine 0.6, total bilirubin 1.4, glucose 153. UA consistent with UTI. CT of the abdomen pelvis showed duplicated right pelvic kidney, a 1.5 mm nonobstructing right renal calculus, and suspected DVT. U/S of BLE showed no DVT. Review of Systems Review of Systems: All systems reviewed & are unremarkable except as noted in HPI and below PMFSH Past Medical History Medical History Anxiety Chronic headaches Depression Hx of gallstones Hx of migraines induced hypertension Seizures Thyroid disorder Surgical History Surgical History H/O partial thyroidectomy History of cholecystectomy History of tonsillectomy Family History Family History Mother Depression Anxiety Thyroid disorder Father Hypertension Sibling Anxiety Depression Grandparent Breast cancer Grandparent Heart disease Other Diabetes mellitus Social History Social History Social History: Currently vapes small dose 6 mg/2 weeks Smoking packs per day: 1 Smoking cigarettes per day: 20.0 Years smoked: 4 Smoking pack-years: 4.00 Smoking status: Former smoker Additional smoking assessment comments: STOPPED VAPING AUGUST 2020 Alcohol intake: never Substance use: current Substance use type: marijuana Do You Feel Safe in your Home?: Yes Lack of Transportation: No Lack of Food: Never True Current Housing: I Have Housing Concerned About Future Housing: No Difficulty Paying Gas/Electric Bills: No Difficulty Paying for Meds: No Currently Unemployed: No Education: Decline to Answer Difficulty w/ Childcare or Family Care: No Living arrangements: with family Gender identity (if verbalized by the patient): Female Sexual Orientation (if Verbalized by the Patient): Straight or Heterosexual Spiritual care concerns: No Meds Home Medications and Allergies Home Medications Medication Instructions Recorded Confirmed Type fluoxetine 60 mg tablet 60 mg PO DAILY #30 tabs 03/01/23 03/25/23 Rx levetiracetam 1,000 mg tablet 1,000 mg PO Q12H #60 tabs 03/01/23 03/25/23 Rx Allergies Allergy/AdvReac Type Severity [place]
[2023-03-25] MEDS: levETIRAcetam 500 MG TABLET 1000 MG PO (23:30)
[2023-03-25] MEDS: MORPHINE SULFATE (*CRX) 2 MG/ML INJ IV PUSH (23:30)
[2023-03-26] MEDS: SODIUM CHLORIDE 0.9% IV 1,000 ML 125 ML IV CONT ×3 (02:51→20:39)
[2023-03-26] MEDS: HYDROmorphone HCL INJ (*CRX) 1 MG/ML SYR 0.5 MG IV PUSH ×2 (02:51→12:35)
[2023-03-26 05:25] VITALS: BP 106/65; PULSE 56; RESP 13; TEMP 36.2; O2SAT 100
[2023-03-26] MEDS: MORPHINE SULFATE (*CRX) 2 MG/ML INJ IV PUSH ×4 (05:28→22:15)
[2023-03-26 06:36] LABS: Basophils Percent Auto 0.4 % (0.2-1.2); Eosinophils Absolute Auto 0.2 K/mm3 (0-0.3); Eosinophils Percent Auto 2.1 % (0-4.4); Hematocrit 34.2 % (37.0-47.0); Hemoglobin 11.1 g/dL (12.0-15.0); Immature Granulocyte Absolute 0.03 K/mm3 (0.00-0.031); Immature Granulocyte Percent A 0.3 % (0-0.5); Lymphocytes Absolute Auto 2.26 K/mm3 (0.9-3.2); Lymphocytes Percent Auto 24.7 % (18.3-44.2); Mean Corpuscular HGB Conc 32.5 g/dl (32-36); Mean Corpuscular Hemoglobin 29.6 pg (26-34); Mean Corpuscular Volume 91.2 fl (80-100); Mean Platelet Volume 9.6 fl (7.4-10.4); Monocytes Absolute Auto 0.6 K/mm3 (0.1-0.6); Neutrophils Percent Auto 65.5 % (45.5-73.1); Platelet Count Result 426 k/mm3 (150-375); Red Blood Count 3.75 M/mm3 (4.2-5.4); White Blood Count 9.1 K/mm3 (4.5-10.0)
[2023-03-26 06:59] LABS: Anion Gap 8 mmol/L (8-16); Blood Urea Nitrogen 9 mg/dL (7-17); Calcium 8.1 mg/dL (8.4-10.2); Carbon Dioxide 25 mmol/L (22-30); Chloride 105 mmol/L (98-107); Estimated CRCL calculation 94 ml/min; Estimated Glomerular Filt Rate > 60; Glucose 86 mg/dL (65-110); Sodium 138 mmol/L (137-145)
[2023-03-26 08:00] VITALS: PULSE 52; RESP 12; O2SAT 100
[2023-03-26] MEDS: FLUoxetine HCL 20 MG CAPSULE 60 MG PO (08:23)
[2023-03-26] MEDS: levETIRAcetam 500 MG TABLET 1000 MG PO ×2 (08:24→20:36)
--- NOTE | 2023-03-26 13:39 | PC.NURSE ---
This RN spoke with MARTY Butler face to face regarding pain control measures. Informed EXPLOSIVE SPECIALIST that the IV Dilaudid and Morphine were only controlling pt's pain for a short amount of time, inquired about a PO extended release option. No orders have been entered at this time. Pt is still having pain.
--- NOTE | 2023-03-26 13:53 | PM.IMPN ---
Progress Note: A&P Assessment and Plan (1) Acute UTI: Code(s): N39.0 - Urinary tract infection, site not specified Status: Acute Assessment and Plan: -urine culture pending -continue ceftriaxone 1 g Q 24 hour. -pain medication and antiemetics p.r.n. -monitor I&Os (2) Weight loss, unintentional: Code(s): R63.4 - Abnormal weight loss Status: Acute Assessment and Plan: Reported 60 lb weight loss in the past 4-5 months. Unintentional. s/s difficulty swallowing/sore throat due to enlarged thyroid which she has been referred to [facility] for head and neck surgeon. -tSH normal -continue IV fluids. (3) Thyroid disorder: Code(s): E07.9 - Disorder of thyroid, unspecified Status: Acute Assessment and Plan: -TSH is normal Plan Home Meds/Chronic Conditions -anxiety/depression: Continue Prozac -seizures: Continue Keppra Diet: Regular, soft and bite size GI Prophylaxis: Not currently indicated DVT Prophylaxis: Low risk Lines: pIV Code Status: Full Code Subjective Date/time seen: 03/26/23 13:53 Interval history: 32 y/o F presents here with bilateral flank pain, nausea, vomiting, and diarrhea with past medical history of anxiety/depression, migraines, gallstones s/p cholecystectomy, thyroid dysfunction w/partial thyroidectomy, and seizures. Patient presented here with bilateral flank pain, nausea, vomiting, and chills that began this morning around 6:00 a.m. symptoms preceded by diarrhea for the past 3 days.? Patient did have COVID approximately 2 weeks ago, otherwise no other recent infections.? Does report 60 lb of weight loss in the past 4-5 months.? Believes this is secondary to her thyroid enlargement.? She has a history of a partial thyroidectomy, they were unable to do a complete thyroidectomy due to the size of the left side of her thyroid and are currently recommending a sternotomy approach?? [facility] patient has been unable to schedule with them due to socioeconomic factors.? Due to thyroid enlargement she has been experiencing some difficulty with swallowing and sore throat.? Believe she became very dehydrated over the past few days due to the ongoing dysphagia and new diarrhea.? Was unable to provide urine sample in the ED until she received fluids and had to have straight cath which did not yield much urine according to the patient.? Patient continues to feel fatigued and generally weak.? Bilateral flanks are tender to palpation.? ED workup revealed: mild leukocytosis with white count of 12.2, elevated platelet count at 592, creatinine 0.6, total bilirubin 1.4, glucose 153.? UA consistent with UTI.? CT of the abdomen pelvis showed duplicated right pelvic kidney, a 1.5 mm nonobstructing right renal calculus, and suspected DVT.? U/S of BLE showed no DVT. Interval Hx: 03/26/2023: Pt seen this morning she is resting with eyes open, reports ongoing bilateral flank pain, she denies any n/v, chest pain, fever or chills at this time. Review of Systems Review of Systems: All systems reviewed & are unremarkable except as noted in HPI and below Exam Narrative: GENERAL: lying in bed, in no acute distress HEAD: Normocephalic, atraumatic. EYES: PERRLA and EOMI. ENT: Nares clear, no rhinorrhea or epistaxis. Mucous membranes moist. Oropharynx without tonsillar hypertrophy exudate or other lesions. NECK: Supple. No adenopathy or masses. CHEST: No respiratory distress. Clear to auscultation. No wheezes rales or rhonchi HEART: Regular rate and rhythm. No murmur heard. Normal peripheral pulses. ABDOMEN: Bilateral flank tenderness present. Soft, otherwise nontender, nondistended, normal active bowel sounds. MSK: Normal range of motion. No edema. SKIN: Warm, dry, no rash. NEURO: Alert and oriented x3. No focal deficits. PSYCH: anxious mood. Tearful affect. Objective Data Vital Signs Vital Signs: V
[2023-03-26 14:00] VITALS: BP 101/62; PULSE 52; RESP 12; TEMP 36.1; O2SAT 100
[2023-03-26] MEDS: HYDROcodone/acetaminophen (*CRX) 5-325 MG TABLET 1 TAB PO (19:28)
[2023-03-26] MEDS: traZODone HCL 25 MG TABLET PO (20:36)
[2023-03-26] MEDS: MELATONIN 3 MG TABLET PO ×2 (20:37)
[2023-03-26 22:00] VITALS: BP 116/78; PULSE 52; RESP 14; TEMP 36.2; O2SAT 100
[2023-03-27] MEDS: SODIUM CHLORIDE 0.9% IV 1,000 ML 125 ML IV CONT (04:56)
[2023-03-27] MEDS: MORPHINE SULFATE (*CRX) 2 MG/ML INJ IV PUSH (04:59)
[2023-03-27 06:00] VITALS: BP 99/69; PULSE 44; RESP 16; TEMP 36.3; O2SAT 99
[2023-03-27 06:14] LABS: Basophils Absolute Auto 0.1 K/mm3 (0.0-0.1); Basophils Percent Auto 0.9 % (0.2-1.2); Eosinophils Absolute Auto 0.2 K/mm3 (0-0.3); Eosinophils Percent Auto 3.5 % (0-4.4); Hematocrit 32.5 % (37.0-47.0); Hemoglobin 10.2 g/dL (12.0-15.0); Immature Granulocyte Absolute 0.01 K/mm3 (0.00-0.031); Immature Granulocyte Percent A 0.2 % (0-0.5); Lymphocytes Absolute Auto 2.46 K/mm3 (0.9-3.2); Lymphocytes Percent Auto 43.2 % (18.3-44.2); Mean Corpuscular HGB Conc 31.4 g/dl (32-36); Mean Corpuscular Hemoglobin 29.7 pg (26-34); Mean Corpuscular Volume 94.5 fl (80-100); Monocytes Absolute Auto 0.4 K/mm3 (0.1-0.6); Monocytes Percent Auto 7.4 % (2.6-8.5); Neutrophils Absolute Auto 2.6 K/mm3 (1.3-6.7); Neutrophils Percent Auto 44.8 % (45.5-73.1); Platelet Count Result 354 k/mm3 (150-375); Red Blood Count 3.44 M/mm3 (4.2-5.4); Red Cell Distribution Width 14.9 % (11.5-14.5); White Blood Count 5.7 K/mm3 (4.5-10.0)
[2023-03-27 06:25] LABS: Alanine Aminotransferase 27 U/L (6-35); Alkaline Phosphatase 32 U/L (38-126); Anion Gap 3 mmol/L (8-16); Aspartate Amino Transferase 39 U/L (14-36); Bilirubin,Total 0.4 mg/dL (0.2-1.3); Blood Urea Nitrogen 7 mg/dL (7-17); Carbon Dioxide 26 mmol/L (22-30); Chloride 109 mmol/L (98-107); Estimated CRCL calculation 94 ml/min; Estimated Glomerular Filt Rate > 60; Glucose 85 mg/dL (65-110); Potassium 3.3 mmol/L (3.4-5.0); Sodium 138 mmol/L (137-145)
[2023-03-27] MEDS: FLUoxetine HCL 20 MG CAPSULE 60 MG PO (09:01)
[2023-03-27] MEDS: levETIRAcetam 500 MG TABLET 1000 MG PO (09:01)
[2023-03-27] MEDS: HYDROcodone/acetaminophen (*CRX) 5-325 MG TABLET 1 TAB PO (09:06)
--- NOTE | 2023-03-27 10:56 | PC.NURSE ---
Addendum entered by Madalyn Jackson RN 03/27/23 16:57: 1500 Patient called me to her room and stated all three prescriptions are now available . She was told she was ready to go whenever she wanted. Patient refused WC escort to hospital outer doors. and three children present at [place]. Addendum entered by Madalyn Jackson RN 03/27/23 15:56: 1100 urine measured, 800mL, and strained. Nothing of note in strainer. Original Note: Patient in good spirits and reports no issues with ambulating in her room. She is trying to avoid IV pain medication at this time and wants to take the PO dose.
[2023-03-27 12:04] LABS: Magnesium 1.9 mg/dL (1.6-2.3)
[2023-03-27] MEDS: POTASSIUM CHLORIDE 10 MEQ ER TABLET PO (12:24)
--- NOTE | 2023-03-27 13:49 | PM.DS ---
DS: Admitting Diagnosis Discharge Date 03/27/2023 Admitting Diagnosis PYELONEPHRITIS DS: Discharge Diagnosis Discharge Diagnosis (1) Pyelonephritis: Code(s): N12 - Tubulo-interstitial nephritis, not specified as acute or chronic Status: Acute (2) GERD (gastroesophageal reflux disease): Code(s): K21.9 - Gastro-esophageal reflux disease without esophagitis Status: Acute (3) Acute UTI: Code(s): N39.0 - Urinary tract infection, site not specified Status: Acute (4) Weight loss, unintentional: Code(s): R63.4 - Abnormal weight loss Status: Acute DS: Summary Hospital Course Reason for hospitalization: 32 y/o F presents here with bilateral flank pain, nausea, vomiting, and diarrhea with past medical history of anxiety/depression, migraines, gallstones s/p cholecystectomy, thyroid dysfunction w/partial thyroidectomy, and seizures. Hospital Course: Patient presented here with bilateral flank pain, nausea, vomiting, and chills that began this morning around 6:00 a.m. symptoms preceded by diarrhea for the past 3 days.? Patient did have COVID approximately 2 weeks ago, otherwise no other recent infections.? Does report 60 lb of weight loss in the past 4-5 months.? Believes this is secondary to her thyroid enlargement.? She has a history of a partial thyroidectomy, they were unable to do a complete thyroidectomy due to the size of the left side of her thyroid and are currently recommending a sternotomy approach?? [facility] but patient has been unable to schedule with them due to socioeconomic factors.? Due to thyroid enlargement she has been experiencing some difficulty with swallowing and sore throat.? Believe she became very dehydrated over the past few days due to the ongoing dysphagia and new diarrhea.? Was unable to provide urine sample in the ED until she received fluids and had to have straight cath which did not yield much urine according to the patient.? Patient continues to feel fatigued and generally weak.? Bilateral flanks are tender to palpation.? ED workup revealed mild leukocytosis with white count of 12.2, elevated platelet count at 592, creatinine 0.6, total bilirubin 1.4, glucose 153.? UA consistent with UTI.? CT of the abdomen pelvis showed duplicated right pelvic kidney, a 1.5 mm nonobstructing right renal calculus, and suspected DVT.? U/S of BLE showed no DVT. Interval Hx: 03/26/2023: Pt seen this morning she is resting with eyes open, reports ongoing bilateral flank pain, she denies any n/v, chest pain, fever or chills at this time. 03/27/2023: pt seen this am, she is resting with eyes closed easily arouses, reports her bilateral flank pain still present, but was better managed with po meds last night. She denies any other c/o at this time, and has requested to be discharged home, with ongoing out-pt management. Status at Discharge Functional status at discharge: independent ambulation Overall status at discharge: patient is back to baseline Time Spent with Patient Time attestation: Total time spent providing and/or coordinating discharge services: Time spent: Less than 30 minutes Exam Narrative: GENERAL: lying in bed, in no acute distress HEAD: Normocephalic, atraumatic. EYES: PERRLA and EOMI. ENT: Nares clear, no rhinorrhea or epistaxis. Mucous membranes moist. Oropharynx without tonsillar hypertrophy exudate or other lesions. NECK: Supple. No adenopathy or masses. CHEST: No respiratory distress. Clear to auscultation. No wheezes rales or rhonchi HEART: Regular rate and rhythm. No murmur heard. Normal peripheral pulses. ABDOMEN: Bilateral flank tenderness present. Soft, otherwise nontender, nondistended, normal active bowel sounds. MSK: Normal range of motion. No edema. SKIN: Warm, dry, no rash. NEURO: Alert and oriented x3. No focal deficits. PSYCH: anxious mood. Tearful affect. DS: Data Data Completed and P
== END 2023-03-27 15:07 | disposition home or self-care (01) ==
LOC: ANHED 12:21 → ANH3MEDSUR 03-27 13:48
PROVIDERS: Emergency Medicine; Student in an Organized Health Care Education/Training Program; Admitting Provider Internal Medicine; Emergency Provider Physician Assistant; PCP Family Medicine; Visit Provider Nurse Practitioner
DX: N12 Tubulo-interstitial nephritis, not specified as acute or chronic (principal); K21.9 Gastro-esophageal reflux disease without esophagitis; R63.4 Abnormal weight loss; Z68.1 Body mass index [BMI] 19.9 or less, adult; E89.0 Postprocedural hypothyroidism; R93.6 Abnormal findings on diagnostic imaging of limbs; Q63.0 Accessory kidney; K76.0 Fatty (change of) liver, not elsewhere classified; F41.9 Anxiety disorder, unspecified; F32.A Depression, unspecified; Z90.49 Acquired absence of other specified parts of digestive tract; G43.909 Migraine, unspecified, not intractable, without status migrainosus; G40.909 Epilepsy, unspecified, not intractable, without status epilepticus; Z86.16 Personal history of COVID-19; Z87.891 Personal history of nicotine dependence; F12.90 Cannabis use, unspecified, uncomplicated; Z81.8 Family history of other mental and behavioral disorders
CPT/HCPCS: 36415; 74177; 80048; 80053; 81001; 81025; 83735; 84443; 85025; 87077; 87086; 87186; 93971; 96361; 96365; 96367; 96375; 96376; 99285; A9270; G0378; J0696; J1170; J1885; J1953; J2270; J2405; J7030; Q9967

== ENCOUNTER 2023-04-16 10:50 | Emergency (ER) | payer OTHER, SELFPAY ==
--- NOTE | ~2023-04-16 | CT_ITS ---
CT of the Abdomen and Pelvis: Indication: Flank pain Technique: 2.5 mm axial scans were obtained through the abdomen and pelvis following intravenous adm inistration of 100 cc of Omnipaque 350. Dose reduction technique was used on this scan by utilizing a utomated exposure control and iterative reconstruction technique. The dose-length product (DLP) was 1 86.71 mGy-cm. COMPARISON: 03/25/2023 Findings: Scans through the lung bases are unremarkable. The liver, spleen, pancreas, adrenals and left kidney are within normal limits. Cholecystectomy clips are present. Right kidney is mildly ptotic and malrotated. Probable at least partial duplication of the renal collecting system. No evidence of aortic aneurysm. No lymphadenopathy. No bowel obstruction or bowel wall thickening. There is no evidence to suggest acute appendicitis. Images through the pelvis were performed. Urinary bladder collapsed. No adnexal mass seen. No ascites . Impression: No acute abnormalities seen. 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 Reviewed, dictated and finalized at location . ING MACHINE OPERATOR Impression: No acute abnormalities seen. 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
[2023-04-16 11:24] VITALS: BP 109/71; PULSE 120; RESP 16; TEMP 36.6; O2SAT 95
[2023-04-16 12:35] VITALS: BP 107/72; PULSE 60; RESP 18; O2SAT 100
--- NOTE | 2023-04-16 13:02 | ED.FEMALEGU ---
HPI - Female Genitourinary General Chief complaint: Urogenital-Female Stated complaint: flank pain Time Seen by Provider: 04/16/23 13:01 Source: patient History of Present Illness HPI Narrative: 32 years old white female came to the emergency room complaining of severe nausea, vomiting started 2 days ago with severe lower abdominal pain, sharp, stabbing radiating to right flank area. History of cholecystectomy, history of anxiety and depression. Patient denies any fever or chills. Related Data Allergies Allergy/AdvReac Type Severity Reaction Status Date / Time codeine AdvReac Unknown Nausea and Verified 04/16/23 13:30 Vomiting gabapentin AdvReac Gastrointestinal Verified 04/16/23 13:30 Upset Review of Systems Review of Systems: All systems reviewed & are unremarkable except as noted in HPI and below PMFSH Past Medical History Medical History Anxiety Chronic headaches Depression Hx of gallstones Hx of migraines induced hypertension Seizures Thyroid disorder Surgical History Surgical History H/O partial thyroidectomy History of cholecystectomy History of tonsillectomy Family History Family History Mother Depression Anxiety Thyroid disorder Father Hypertension Sibling Anxiety Depression Grandparent Breast cancer Grandparent Heart disease Other Diabetes mellitus Social History Social History Social History: Currently vapes small dose 6 mg/2 weeks Smoking packs per day: 1 Smoking cigarettes per day: 20.0 Years smoked: 4 Smoking pack-years: 4.00 Smoking status: Former smoker Additional smoking assessment comments: STOPPED VAPING AUGUST 2020 Alcohol intake: never Substance use: current Substance use type: marijuana Do You Feel Safe in your Home?: Yes Lack of Transportation: No Lack of Food: Never True Current Housing: I Have Housing Concerned About Future Housing: No Difficulty Paying Gas/Electric Bills: No Difficulty Paying for Meds: No Currently Unemployed: No Education: Decline to Answer Difficulty w/ Childcare or Family Care: No Living arrangements: with family Gender identity (if verbalized by the patient): Female Sexual Orientation (if Verbalized by the Patient): Straight or Heterosexual Spiritual care concerns: No Exam Narrative: General appearance: Well-developed, well-nourished, restless, in pain Skin: Normal color Head: Normocephalic, nontraumatic Eyes: Clear conjunctiva ENT: Oropharynx normal, ears normal, nose normal Neck: Supple, nontender Chest and respiratory: Airway patent, no respiratory distress, no accessory muscle use Heart: Regular rate/rhythm Abdomen: Severe abdominal pain mainly lower abdomen bilaterally Vascular: Normal peripheral pulses, normal capillary refill. Musculoskeletal: Normal range of motion, nontender back Neurologic: Alert and oriented ?3, CASCADE OPERATOR is normal as tested, no gross motor deficit Course Vital Signs Vital signs: Vital Signs Temperature 36.6 C 04/16/23 11:24 Pulse Rate 120 H 04/16/23 11:24 Respiratory Rate 16 04/16/23 11:24 Blood Pressure 109/71 04/16/23 11:24 Pulse Oximetry 95 04/16/23 11:24 Temperature 36.6 C 04/16/23 11:24 Pulse Rate 100 04/16/23 16:05 Respiratory Rate 18 04/16/23 16:05 Blood Pressure 106/69 04/16/23 16:05 Pulse Oximetry 100 04/16/23 16:05 MDM - Female Genitourinary MDM Narrative Medical decision making narrative:
[2023-04-16 13:22] LABS: Basophils Absolute Auto 0.2 K/mm3 (0.0-0.1); Basophils Percent Auto 1.3 % (0.2-1.2); Eosinophils Absolute Auto 0.1 K/mm3 (0-0.3); Eosinophils Percent Auto 0.4 % (0-4.4); Hematocrit 45.3 % (37.0-47.0); Hemoglobin 15.5 g/dL (12.0-15.0); Immature Granulocyte Absolute 0.06 K/mm3 (0.00-0.031); Immature Granulocyte Percent A 0.5 % (0-0.5); Lymphocytes Absolute Auto 1.61 K/mm3 (0.9-3.2); Lymphocytes Percent Auto 13.4 % (18.3-44.2); Mean Corpuscular HGB Conc 34.2 g/dl (32-36); Mean Corpuscular Hemoglobin 29.7 pg (26-34); Mean Corpuscular Volume 86.8 fl (80-100); Mean Platelet Volume 9.4 fl (7.4-10.4); Monocytes Absolute Auto 0.5 K/mm3 (0.1-0.6); Neutrophils Absolute Auto 9.7 K/mm3 (1.3-6.7); Neutrophils Percent Auto 80.4 % (45.5-73.1); Platelet Count Result 370 k/mm3 (150-375); Red Blood Count 5.22 M/mm3 (4.2-5.4); Red Cell Distribution Width 14.6 % (11.5-14.5)
[2023-04-16] MEDS: ONDANSETRON INJ 4 MG/2 ML VIAL IV PUSH (13:33)
[2023-04-16] MEDS: HYDROmorphone HCL INJ (*CRX) 1 MG/ML SYR 0.5 MG IV PUSH ×2 (13:33→14:25)
[2023-04-16 13:50] LABS: Alanine Aminotransferase 26 U/L (6-35); Albumin Level 4.8 g/dL (3.5-5.1); Alkaline Phosphatase 47 U/L (38-126); Anion Gap 12 mmol/L (8-16); Aspartate Amino Transferase 39 U/L (14-36); Blood Urea Nitrogen 11 mg/dL (7-17); Calcium 10.7 mg/dL (8.4-10.2); Carbon Dioxide 23 mmol/L (22-30); Chloride 103 mmol/L (98-107); Estimated CRCL calculation 96 ml/min; Estimated Glomerular Filt Rate > 60; Glucose 129 mg/dL (65-110); Potassium 3.2 mmol/L (3.4-5.0); Sodium 138 mmol/L (137-145)
[2023-04-16 14:55] LABS: Appearance Urine Cloudy (Clear); Bacteria Urine 2+ /hpf; Bilirubin Urine Negative (Negative); Blood Urine Negative (Negative); Color Urine Yellow (Yellow); Glucose Urine UA Negative (Negative); Ketones Urine Trace mg/dL (Negative); Leukocyte Esterase Ur 1+ LEU/UL (Negative); Need Manual Microscopic Reviewed; Nitrate Urine Negative (Negative); Non Pathogenic Casts 0-2; Protein Urine 2+ mg/dL (Negative); Specific Grav Ur 1.026 (1.001-1.035); Squamous Epithelial Cell Urine Many /hpf (Few); WBC Urine 0-5 /hpf; pH Urine >=9.0 (5.0-9.0)
[2023-04-16 14:56] LABS: Add Urine Microscopic? YES
[2023-04-16 16:05] VITALS: BP 106/69; PULSE 100; RESP 18; O2SAT 100
[2023-04-16] MEDS: LORazepam INJ (*CRX) 2 MG/ML VIAL 1 MG IV PUSH (16:05)
== END 2023-04-16 16:32 | disposition home or self-care (01) ==
PROVIDERS: Emergency Provider Emergency Medicine; PCP Family Medicine
DX: R10.9 Unspecified abdominal pain (principal); R06.4 Hyperventilation; F17.290 Nicotine dependence, other tobacco product, uncomplicated
CPT/HCPCS: 36415; 74177; 80053; 81001; 81025; 85025; 96374; 96375; 96376; 99284; J1170; J2060; J2405; Q9967

== ENCOUNTER 2023-09-19 10:04 | Outpatient (CLI) | payer OTHER, SELFPAY ==
[2023-09-19 15:40] LABS: Alanine Aminotransferase 13 U/L (6-35); Albumin Level 4.5 g/dL (3.5-5.1); Alkaline Phosphatase 38 U/L (38-126); Anion Gap 10 mmol/L (4-12); Aspartate Amino Transferase 69 U/L (14-36); Bilirubin,Total 0.4 mg/dL (0.2-1.3); Blood Urea Nitrogen 14 mg/dL (7-17); Calcium 8.7 mg/dL (8.4-10.2); Carbon Dioxide 26 mmol/L (22-30); Chloride 105 mmol/L (98-107); Estimated Glomerular Filt Rate > 60; Glucose 85 mg/dL (65-110); Potassium 3.4 mmol/L (3.4-5.0); Sodium 141 mmol/L (137-145)
[2023-09-19 16:01] LABS: Free T4 Free Thyroxine 1.21 ng/mL (0.78-2.19)
[2023-09-19 16:07] LABS: Vitamin D 25 Hydroxy 29.1 ng/mL
== END 2023-09-19 10:05 | disposition home or self-care (01) ==
LOC: ANHGOSHLAB 10:06
PROVIDERS: PCP Family Medicine; Visit Provider Family Medicine
DX: E55.9 Vitamin D deficiency, unspecified (principal); E03.9 Hypothyroidism, unspecified; Z13.228 Encounter for screening for other metabolic disorders
CPT/HCPCS: 36415; 80053; 82306; 84439; 84443

== ENCOUNTER 2024-11-26 12:52 | Emergency (ER) | payer OTHER, SELFPAY ==
--- NOTE | ~2024-11-26 | CT_ITS ---
Tawana Best EXAMINATION: CT abdomen pelvis w con COMPARISON: None HISTORY: epigastric pain, n/v, constipation TECHNIQUE: Axial images were obtained through the abdomen, pelvis post administration of IV contrast. Oral contrast was also administered. Coronal reconstruction images were obtained from the axial views. CT scan performed using dose optimization techniques including the following automated exposure control; adjustment of mA and/or kV; use of iterative reconstruction technique. Automatic exposure control was used to reduce radiation dose. Permanent radiation dose record is archived to PACS. FINDINGS: CT abdomen: LUNG BASES: The lung bases are clear. The visualized portions of the heart and pericardium are unremarkable. LIVER: Unremarkable, liver contours intact, no lesions. SPLEEN: Unremarkable. KIDNEYS: Right Kidney: Right kidney located in the pelvis with subcentimeter probable renal cysts. Left Kidney: Unremarkable. No calculi. No hydronephrosis ADRENAL GLANDS: Unremarkable. PANCREAS: Unremarkable. GALLBLADDER/BILIARY: Post cholecystectomy. STOMACH AND ESOPHAGUS: Visualized stomach and esophagus within normal limits. BOWEL/MESENTERY: Appendix appears small. Mesentery normal. Small bowel normal. No colitis or diverticulitis. ADENOPATHY/RETROPERITONEUM: No lymphadenopathy. AORTA/VASCULATURE: Normal caliber aorta. FREE FLUID OR FREE AIR: None. CT pelvis: SOLID ORGANS/REPRODUCTIVE: Unremarkable. BLADDER: Circumferential thickening of the bladder wall. OSSEOUS STRUCTURES: No acute osseous abnormality.No suspicious lesions. OVERLYING SOFT TISSUES: Unremarkable. IMPRESSION: Mild cystitis. Reviewed, dictated and finalized at location A. IMPRESSION: Mild cystitis.
--- OUTSIDE RECORDS SUMMARY | 2024-11-26 13:18 | XMS_ITS | Encounter Summary ---
Author Organization [facility] Address [address] [place] [address] Care Team Providers Care Sales Assistant Displays Name Role Phone Jordyn Elder MD Unavailable Tramaine Webster MD Primary Care Provider [phone] Reason for Visit * Reason Onset Date Comments Appointment 06/06/2023 Encounter Details Date Type Department Care Team (Late st Contact Info) Description 06/06/2023 Telephone [facility] - Centralized Scheduling [address] [place] [address] Axel Steele MD [address] [facility] [facility] [address] [place] [address] Appointment Social History Tobacco Use Types Packs/Day Years Used Date Smoking Tobacco: Never Passive Smoke Exposure: Yes Smokeless Tobacco: Never Comments:uncle Alcohol Use Standard Drinks/Week Comments No 0 (1 standard drink = 0.6 oz pur e alcohol) AUDIT-C Answer Date Recorded Q1: How often do you have a drink containing alcohol? Never 06/01/2023 Q2: How many drinks containi ng alcohol do you have on a typical day when you are drinking? Patient does not drink Q3: How often do you have si x or more drinks on one occasion? Never 06/01/2023 Overall Financial Resource Strain (CARDIA) Answe r Date Recorded How hard is it for you to pa y for the very basics like food, housing, medical care, and heating? Not hard at all 06/01/2023 [facility] - Occupational Stress Questionnaire Answer Date Recorded Do you feel stress - tense, restless, nervous, or anxious, or unable to sleep at night because your mind is troubled all the time - these days? Only a little 06/01/2023 Hunger Vital Sign Answer Date Recorded Within the past 12 months, y ou worried that your food would run out before you got the money to buy more. Never true 06/01/19 24 Within the past 12 months, t he food you bought just didn't last and you didn't have money to get more. Never true 06/01/2023 PRAPARE - Transportation Answer Date Re corded In the past 12 months, has l ack of transportation kept you from medical appointments or from getting medications? No 05/06 In the past 12 months, has l ack of transportation kept you from meetings, work, or from getting things needed for daily living? No 06/01/2023 Housing Stability Vital Sign Answer [place] e Recorded In the last 12 months, was t here a time when you were not able to pay the mortgage or rent on time? No 06/01/2023 In the last 12 months, how many places have you lived? 1 06/01/2023 In the last 12 months, was t here a time when you did not have a steady place to sleep or slept in a correction (including now)? 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 Answer Date of Assessment Author No 06/03/2023 3:15 PM Jade Wilcox, IMMANUEL * Is person blind or have serious difficulty seeing? Answer Date of Assessment Author No 06/03/2023 3:15 PM Jade Wilcox, IMMANUEL * Does person have serious difficulty walking/climbing stairs? Answer Date of Assessment Author No 06/03/2023 3:15 PM Jade Wilcox, IMMANUEL * Does person have difficulty dressing/bathing? Answer Date of Assessment Author No 06/03/2023 3:15 PM CDT Jade Vasquez, IMMANUEL * Does person have difficulty doing errands alone? Answer Date of Assessment Author No 06/03/2023 3:15 PM CDT Jade Vasquez RN documented as of this encounter Mental Status * Does person have difficulty concentrating/remembering/making decisions? Answer Entry Date Author No 06/03/2023 3:15 PM CDT Jade Vasquez RN documented in this encounter Miscellaneous Notes * Telephone Encounter - Domo Yanez - 06/06/2023 3:35 PM CDT Patient is concerned about her postop f/u being scheduled to 06/19. She says that she can't shower or change her bandages. Please f/u. documented in this encounter Plan of Treatment Not on file documented as of this encounter Visit Diagnoses Not on filedocumented in this encounter Care Teams Sales Assistant Displays Relationship Specialty Start Date End Date Jordyn Elder MD PCP - Pediatrics 12/09/08 Tramaine Webster MD [address] [place] [address] PCP - General 03/22/21 documented as of this encounter
--- OUTSIDE RECORDS SUMMARY | 2024-11-26 13:18 | XMS_ITS | Clinical Summary ---
Author Organization [facility] Address [address] [place] [address] Care Team Providers Care Vp Product Name Role Phone Jordyn Elder MD Unavailable Tramaine Webster MD Primary Care Provider [phone] Source Comments [facility],non-owned Affiliates and Associated Physician Practices is amultiple site organization consisting of ambulatory clinics and hospital sitesin [place], [place], [place] and [place]. This disclosure is being madepursuant to the Care Everywhere program and may not contain all information available regarding this patient. Last updated 17.[facility] Allergies Active Allergy Reactions Criticality Noted Date Comments Codeine GI Discomfort 03/25/2021 Gabapentin Itching 03/25/2021 Medications * Be aware that medications may not be up to date on this document. Alwaysverify current medications with the patient. FLUoxetine (PROZAC) 60 MG tablet Take 1 (one) tablet by mouth once daily 1 Active ibuprofen (MOTRIN) 600 MG tablet Take 1 (one) tablet by mouth every 6 hours as needed 1 Active levETIRAcetam (KEPPRA) 1000 MG tablet Take 1 (one) tablet by mouth once daily 1 Active acetaminophen (Tylenol) 500 MG tablet Take 2 (two) tablets by mouth every 6 hours Maximum allowable Acetaminophen amount = 4 Grams (4000 mg) / 24 hours. 4 Active calcium carbonate (Tums) 500 MG chew tablet Take 2 (two) tablets by mouth every 3 hours as needed for Heartburn 4 Active naloxone HCl (Narcan) 4 MG/0.1ML nasal spray [place] 1 (one) spray into the nose as needed 2 Each 4 Active polyethylene glycol 3350 (Miralax) 17 g packet Take 17 (seventeen) g by mouth once daily 30 packet 4 Active docusate sodium (Colace) 50 MG/5ML solution Take 5 mL by mouth once daily 237 mL 4 Active oxyCODONE, immediate release, (Roxicodone) 5 MG tabletIndicati ons:Thyroid mass Take 1 (one) tablet by mouth every 6 hours as needed for Pain 18 tablet 4 Active oxyCODONE, immediate release, (Roxicodone) 5 MG tabletIndicati ons:Substernal thyroid goiter Take 1 (one) tablet by mouth every 6 hours as needed for Pain 12 tablet 4 Active methocarbamol (Robaxin) 500 MG tablet Take 1 (one) tablet by mouth every 6 hours 30 tablet 4 Active oxyCODONE, immediate release, (Roxicodone) 5 MG tabletIndicati ons:Other diseases of mediastinum, not elsewhere classified TAKE ONE TABLET BY MOUTH EVERY 4 HOURS NEEDED 24 tablet 4 Active ondansetron, disintegrating , (Zofran ODT) 4 MG tablet TAKE ONE TABLET BY MOUTH EVERY 6 HOURS NEEDED FOR NAUSEA/VOMITING. ALLOW TABLET TO DISSOLVE ON THE TONGUE. 9 tablet 4 Active polyethylene glycol 3350 (Miralax) 17 GM/SCOOP powder MIX AND TAKE 1 CAPFUL (17 GM) BY MOUTH ONCE DAILY 510 g 4 Active docusate sodium (Colace) 150 MG/15ML solution TAKE 5 ML BY MOUTH ONCE DAILY 237 mL 4 Active Active Problems Problem Noted Date Diagnosed Date Mediastinal mass 05/31/2023 Seizure 07/10/2019 Hypothyroidism 07/10/2019 Anxiety 07/10/2019 Suspected anomaly, antepartum 06/09/2016 Renal agenesis of fetus affecting antepartum car e of mother 12/20/2013 abnormality affecting management of mother, antepartum condition or complication 12/20/2013 Overview (12/05/2014): Supervision of other high-risk 014 Overview (01/12/2015): Resolved Problems Problem Noted Date Diagnosed Date Resolved Date abnormality in - absent kidney 03/21/19 15 04/04/2014 Overview (04/01/2014): Images from the original note were not included. LONG TERM PATIENT--PLEASE CALL [phone] IF TRIAGED OR ADMITTED Care Provider: Dr. Goss [facility] Care [place] consultants involved: Nurse coordinatorIke Dinero- initial LONG TERM visit 1. Diagnosis: Renal Agenesis- Unilateral Left care needed at : Planned care after delivery: Formula Weigher: Planned surveillance: Planned delivery location: Planned [place] at delivery: Planned mode of delivery: Placenta Instructions: Autopsy indicated: Genetics note: Medical Records Receptionist Concerns: This care plan is based on evaluation and is subject to change based on assessment. Please see Images or Cardiac under Chart Review for US/ ECHO/ MRI reports. Immunizations Immunization Administration Dates Next Due DTP HIB, HISTORIC VACCINE 09/03/1993 DTaP VACCINE IM (6wk-6yrs) 10/23/1997,,1992,1992, HEP A PEDS 2 DOSE 09/19/2006 HEP B VACCINE, PED/ADOL 05/14/1993,1992, HIB BOOSTER 09/03/1993,1992,1992 ,1992 Human Papilloma Virus Vaccine 03/14/2007, 007,09/19/2006 INFLUENZA VACCINE 12/23/2020,02/05/2020 MENINGOCOCAL MENINGITIS 11/21/2006 MMR 10/23/1997,09/03/1993 MMR VACCINE 09/03/1993 POLIO OPV 10/23/1997,05/14/1993,1992 ,1992 PPD 09/24/2002,1992 TDAP (7yrs+) 09/19/2006 TDAP, HISTORIC VACCINE 10/04/2016 Family History Medical History Relation Name Comments Thyroid Disease Mother Relation Name Status Comments Mother Social History Tobacco Use Types Packs/Day Years Used Date Smoking Tobacco: Never Passive Smoke Exposure: Yes Smokeless Tobacco: Never Tobacco Cessation:Counseling Given: No Comments:uncle Alcohol Use Standard Drinks/Week Comments No [...] and heating? Not hard at all 06/01/2023 [facility] - Occupational Stress [...] place to sleep or slept in a retirement (including now)? 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 Gender Identity Not on file Sexual Orientation Not on file Last Filed Vital Signs Vital Sign Reading Time Taken Comments Blood Pressure 108/76 07/18/2023 11:04 AM CDT Pulse 68 07/18/2023 11:04 AM CDT Temperature 36.5 C (97.7 F) 07/18/2023 11:04 AM CDT Respiratory Rate 18 07/18/2023 11:04 AM CDT Oxygen Saturation 99% 07/18/2023 11:04 AM CDT Inhaled Oxygen Concentration - - Weight 52.3 kg (115 lb 3.2 oz) 07/18/2023 11:04 AM CDT Height 157.5 cm (5' 2) 07/18/2023 11:04 AM CDT Body Mass Index 21.07 07/18/2023 11:04 AM CDT Plan of Treatment Health Maintenance Due Date Last Done Comments HIV SCREENING 05/28/2007 HEPATITIS C SCREENING 05/23/2010 PAP SMEAR 2013 DEPRESSION SCREENING 03/07/2024 COVID-19 VACCINE ( season) 2024 INFLUENZA VACCINE (#1) 2024 12/23/2020, 2019 DTAP/TDAP/TD VACCINES (8 - Td or Tdap) 10/04/2026 10/04/2016, 09/19/2006, 10/23/1997, Additional history exists ZOSTER VACCINE (1 of 2) 2042 HEPATITIS B VACCINE Completed 05/14/1993, 1992, 1992 HIB VACCINE Completed 09/03/1993, 08/07, 1992, Additional history exists MENINGOCOCCAL GROUPS A/C/Y/W VACCINE Aged Out 11/21/2006 No longer eligible based on patient's age to complete this topic HPV VACCINE Completed 03/14/2007, 11/05, 09/19/2006 MENINGOCOCCAL (Group B) VACCINE SHARED DECISION-MAKING Aged Out No longer eligible based on patient's age to complete this topic PNEUMOCOCCAL VACCINE Aged Out No long er eligible based on patient's age to complete this topic Insurance Member Subscriber Plan / Payer (Ef fective 2020-Present) Name:Tawana Jha Relation to Subscriber:Spouse Name:CORINEJONATHANMASSIMO KANG A Subscriber ID:Not on file Date of :1989 (Home) Address: [address] [place] [address] Payer ID:[id number] (NAIC) Type:HMO Address: [place] [phone] Advance Directives * Full Code (Latest Code Status on File) Date Activated Date Inactivated Comments 05/31/2023 4:44 PM 06/03/2023 5:04 PM Care Teams Vp Product Relationship Specialty Start Date End Date Jordyn Elder MD PCP - Pediatrics 12/09/08 Tramaine Webster MD [address] [place] [id number] PCP - General 03/22/21
--- OUTSIDE RECORDS SUMMARY | 2024-11-26 13:18 | XMS_ITS | Patient Health Record ---
Author Organization [facility] Address [address] [facility] [address] [place] [address] Care Team Providers Care Insulation Power Unit Tender Name Role Phone Hilaria Sterling Unavailable [phone] Reason For Referral No Information Medications Medication SIG (Take, Route, Frequency, Duration) Notes Start Date End Date Status HYDROcodone-Acetaminophen 5-325 MG Tablet Oral 09/03/2019 Active Amoxicillin 500 MG Capsule Oral 09/03/2019 Active traMADol-Acetaminophen 37.5-325 MG Tablet Oral 09/03/2019 Active ALPRAZolam 0.5 MG Tablet Oral 09/03/2019 Active Levothyroxine Sodium 25 MCG Tablet Oral 09/03/2019 Active Venlafaxine HCl ER 150 MG Capsule Extended Release 24 Hour Oral 09/03/2019 Active levETIRAcetam 750 MG Tablet Oral 09/03/2019 Active LORazepam 0.5 MG Tablet Oral 09/03/2019 Active FLUoxetine HCl 20 MG Capsule Oral 09/03/2019 Active Social History Social History Additional Details Category Social Info Options Details Migrated Social History Migrated Social History Alcohol Intake: Occasional 06/09/2019,Tobacco Years: Former smoker 06/09/2019 Plan Of Treatment No Information Insurance Providers Payer Name Payer Address Payer Phone Subscriber Number Group Number Insured Name Patient Relationship to Insured Coverage Start Date Coverage End Date [facility] [address] [address] [place] [phone] [id number] KETTY HESS Spouse - patient is the spouse of the insured Medical (General) History Surgical History Surgery Date(Month/Year) Removal of gallbladder (30103)
--- OUTSIDE RECORDS SUMMARY | 2024-11-26 13:18 | XMS_ITS | Clinical Summary ---
Author Organization [facility] Address [address] [facility], [place] [address] Phone Care Team Providers Care Brake Coupler Dinkey Name Role Phone Unavailable Primary Care Provider Unavailabl e Allergies Active Allergy Reactions Criticality Noted Date Comments Codeine Other (see Comments) 09/11/2019 Abdominal pain Gabapentin Nausea 09/11/2019 Meloxicam Nausea 09/11/2019 Tramadol Other (see Comments) 09/11/2019 Shaking Medications Butalbital-APAP- Caffeine 50-300-40 MG Capsule Take 1 Cap by mouth every 4 hours as needed. Active clonazePAM (KLONOPIN) 0.5 MG Tablet Take 0.5 mg by mouth 2 times daily. Active cyclobenzaprine (FLEXERIL) 10 MG Tablet Take 10 mg by mouth 3 times daily as needed. Active FLUoxetine (PROZAC) 20 MG Capsule Take 20 mg by mouth daily. Active gabapentin (NEURONTIN) 100 MG Capsule Take 100 mg by mouth 3 times daily. Active HYDROcodone-acet aminophen (NORCO) 5-325 MG Tablet Take 1 Tab by mouth every 4 hours as needed. Active levETIRAcetam (KEPPRA) 750 MG Tablet Take 750 mg by mouth 2 times daily. Active LEVOTHYROXINE SODIUM PO Take 25 mcg by mouth. Active venlafaxine (EFFEXOR-XR) 75 MG CAPSULE SR 24 HR Take 75 mg by mouth daily. Active Family History Medical History Relation Name Comments Depression Mother Thyroid Disease Mother Relation Name Status Comments Mother Social History Tobacco Use Types Packs/Day Years Used Date Smoking Tobacco: Former Smokeless Tobacco: Never Alcohol Use Standard Drinks/Week Comments Not Currently 0 (1 standard drink = 0.6 oz pur e alcohol) Comments Unknown Sex and Gender Information Value Date Recorded Sex Assigned at Not on file Legal Sex Female 10:22 PM [employer] Gender Identity Not on file Sexual Orientation Not on file Plan of Treatment Health Maintenance Due Date Last Done Comments Hepatitis C Virus (HCV) Screening 1992 Hepatitis B Immunization (2 of 3 - 3-dose series) 06/11/1993 05/14/1993 Pap Smear 2013 Human Papillomavirus (HPV) Immunization (1 - 3-dose SCDM series) 05/28/2019 Cervical Cancer Screening (CCS) 2022 HPV/Cotest 2022 SARS-COV-2 Immunization ( season) 2023 11/12/2020, 10/17/2020 Influenza Immunization (#1) 2024 Respiratory Syncytial Virus (RSV) Immunization (Adult) (1 - 1-dose 75+ series) 05/28/2067 DTaP/Tdap/Td Immunization Discontinued 2016, 09/03/1993 TdaP Immunization Completed 10/04/2016 Meningococcal Immunization (ACWY) Aged Out No longer eligible based on patient's age to complete this topic Pneumococcal Immunization Combined Aged Out No longer eligible based on patient's age to complete this topic Rotavirus Immunization Aged Out No lo nger eligible based on patient's age to complete this topic
[2024-11-26 13:39] VITALS: BP 109/91; PULSE 57; RESP 18; TEMP 37.5; O2SAT 100
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
[2024-11-26 16:00] LABS: BEDSIDEPREGUCG Negative (Negative)
[2024-11-26 16:06] LABS: Hematocrit 45.1 % (37.0-47.0); Hemoglobin 15.2 g/dL (12.0-15.0); Immature Granulocyte Percent A 0.3 % (0-0.5); Lymphocytes Absolute Auto 1.35 K/mm3 (0.9-3.2); Mean Corpuscular HGB Conc 33.7 g/dl (32-36); Mean Corpuscular Hemoglobin 29.8 pg (26-34); Mean Corpuscular Volume 88.4 fl (80-100); Nucleated Red Blood Cells Absolute Auto 0.000 K/mm3 (0.0-0.012); Nucleated Red Blood Cells Perc 0.0 % (0.0-0.2); Platelet Count Result 294 k/mm3 (150-375); Red Blood Count 5.10 M/mm3 (4.2-5.4); White Blood Count 9.2 K/mm3 (4.5-10.0)
[2024-11-26 16:18] LABS: Alanine Aminotransferase 14 U/L (6-35); Albumin Level 4.6 g/dL (3.5-5.1); Alkaline Phosphatase 34 U/L (38-126); Anion Gap 10 mmol/L (4-12); Aspartate Amino Transferase 25 U/L (14-36); Bilirubin,Total 1.4 mg/dL (0.2-1.3); Blood Urea Nitrogen 9 mg/dL (7-17); Calcium 8.9 mg/dL (8.4-10.2); Carbon Dioxide 25 mmol/L (22-30); Chloride 100 mmol/L (98-107); Estimated CRCL calculation 84 ml/min; Estimated Glomerular Filt Rate > 60; Glucose 113 mg/dL (65-110); Lipase 37 U/L (23-300); Potassium 3.6 mmol/L (3.4-5.0); Sodium 135 mmol/L (137-145); Total Protein 8.1 g/dL (6.3-8.2)
[2024-11-26 16:23] LABS: Add Urine Microscopic? YES; Appearance Urine Cloudy (Clear); Glucose Urine UA Negative (Negative); Leukocyte Esterase Ur 2+ LEU/UL (Negative); Need Manual Microscopic Reviewed; Nitrate Urine Negative (Negative); Non Pathogenic Casts 0-2; Specific Grav Ur 1.022 (1.001-1.035)
[2024-11-26 16:28] LABS: Cannabinoid Screen Urine Positive (Negative)
[2024-11-26] MEDS: ONDANSETRON INJ 4 MG/2 ML VIAL IV PUSH (17:04)
[2024-11-26] MEDS: FAMOTIDINE 20 MG/2 ML VIAL IV PUSH (17:04)
[2024-11-26] MEDS: LACTATED RINGERS 1,000 ML 999 ML IV CONT (17:49)
[2024-11-26] MEDS: ALPRAZolam (*CRX) 0.5 MG TABLET 1 MG PO (19:16)
== END 2024-11-26 19:16 | disposition home or self-care (01) ==
PROVIDERS: Emergency Medicine; Physician Assistant; Emergency Provider Physician Assistant; PCP Family Medicine
DX: R11.2 Nausea with vomiting, unspecified (principal); F41.9 Anxiety disorder, unspecified; F32.A Depression, unspecified; R82.998 Other abnormal findings in urine
CPT/HCPCS: 36415; 74177; 80053; 80307; 81001; 81025; 83690; 85025; 87077; 87086; 87186; 96361; 96374; 96375; 99284; A9270; J2405; J7120; Q9967